=== PATIENT | female | born 1960 | race Caucasian/White ===

== ENCOUNTER 2017-12-06 09:47 | Outpatient (REF) | payer BC, SELFPAY ==
--- NOTE | 2017-12-06 09:00 | PAPFT_PTH ---
PATIENT: Sandi Musa LOC: [facility] U#:[id number] AGE/SX: 57/F ROOM: RE12/06/[address]: Mandi Parker MD : 1960 BED: DIS: 12/06/2017 SPEC #: [id number] RECD: 12/06/17 18:17 STATUS: JIMMIE REElliot #: [id number] ALESHA: 12/06/17 09:[address]: Mandi Parekr DEPT: [facility] Cytology RECD BY: Roma Ruiz ENTERED: 12/06/17 18:18 SP TYPE: PAPFT OTHR DR: Kajal Gaspar Tissues: 1 - CX/ENDOCX FOR PAP SMEARS Procedures: PAP THIN PREP/[facility] Screening Comments: [id number] (UNSATISFACTORY FOR EVALUATION)
== END 2017-12-06 10:07 ==
LOC: LBN 09:47
PROVIDERS: PCP Family Medicine; Visit Provider Obstetrics & Gynecology
DX: Z12.4 Encounter for screening for malignant neoplasm of cervix (principal); Z11.51 Encounter for screening for human papillomavirus (HPV)
CPT/HCPCS: 88142; 87624

== ENCOUNTER 2018-01-18 11:59 | Outpatient (REF) | payer BC, SELFPAY ==
--- NOTE | 2018-01-18 11:00 | PAPFT_PTH ---
PATIENT: Sandi Musa LOC: [facility] U#:[id number] AGE/SX: 57/F ROOM: RE01/18/[address]: Kaylin Chau NP : 1960 BED: DIS: 01/18/2018 SPEC #: [id number] RECD: 01/18/18 18:07 STATUS: JIMMIE REElliot #: [id number] ALESHA: 01/18/18 11:[address]: Kaylni Chau NP DEPT: [facility] Cytology RECD BY: Roma Ruiz ENTERED: 01/18/18 18:07 SP TYPE: PAPFT OTHR DR: Kajal Gaspar Tissues: 1 - CX/ENDOCX FOR PAP SMEARS Procedures: PAP THIN PREP/[facility] Screening HPV DNA PROBE Comments: [id number]
== END 2018-01-18 12:19 ==
LOC: LBN 11:59
PROVIDERS: PCP Family Medicine; Visit Provider Nurse Practitioner Women's Health
DX: Z12.4 Encounter for screening for malignant neoplasm of cervix (principal); Z11.51 Encounter for screening for human papillomavirus (HPV)
CPT/HCPCS: 88142; 87624

== ENCOUNTER 2018-02-15 11:59 | Outpatient (REF) | payer BC, SELFPAY ==
--- NOTE | 2018-02-15 10:55 | CER_PTH ---
PATIENT: Sandi Musa LOC: [facility] U#:[id number] AGE/SX: 57/F ROOM: RE02/15/[address]: Mandi Parker MD : 1960 BED: DIS: 02/15/2018 SPEC #: [id number] RECD: 02/15/18 12:47 STATUS: JIMMIE REQ #: [id number] ALESHA: 02/15/18 10:[address]: Mandi Parker DEPT: Surgical Specimen RECD BY: Roma Ruiz ENTERED: 02/15/18 12:49 SP TYPE: CER OTHR DR: Kajal Gaspar Tissues: 1 - CERVICAL BIOPSY 2 - CERVICAL BIOPSY 3 - CERVICAL BIOPSY 4 - ENDOCERVICAL BX/CURRETTE Procedures: GROSS AND MICRO LEVEL 4 Comments: [id number]
== END 2018-02-15 12:19 ==
LOC: LBN 11:59
PROVIDERS: PCP Family Medicine; Visit Provider Obstetrics & Gynecology
DX: R87.610 Atypical squamous cells of undetermined significance on cytologic smear of cervix (ASC-US) (principal); B97.7 Papillomavirus as the cause of diseases classified elsewhere; N87.0 Mild cervical dysplasia
CPT/HCPCS: 88305

== ENCOUNTER 2019-04-08 12:33 | Outpatient (REF) | payer BC, SELFPAY ==
--- NOTE | 2019-04-08 11:30 | PAPFT_PTH ---
PATIENT: Sandi Musa LOC: [facility] U#:[id number] AGE/SX: 58/F ROOM: RE04/08/[address]: JENI Frey : 1960 BED: DIS: 04/08/2019 SPEC #: [id number] RECD: 04/08/19 12:58 STATUS: JIMMIE REQ #: [id number] ALESHA: 04/08/19 11:[address]: Hansa Bhat DEPT: [facility] Cytology RECD BY: Roma Ruiz ENTERED: 04/08/19 12:58 SP TYPE: PAPFT OTHR DR: Kajal Gaspar Tissues: 1 - CX/ENDOCX FOR PAP SMEARS Procedures: PAP THIN PREP/[facility] Screening HPV DNA PROBE Comments: [id number]
== END 2019-04-08 12:53 ==
LOC: LBN 12:33
PROVIDERS: PCP Family Medicine; Visit Provider Nurse Practitioner Family
DX: Z12.4 Encounter for screening for malignant neoplasm of cervix (principal); Z11.51 Encounter for screening for human papillomavirus (HPV)
CPT/HCPCS: 88142; 87624

== ENCOUNTER 2019-06-23 12:01 | Outpatient (REF) | payer BC, SELFPAY ==
--- NOTE | 2019-06-23 10:20 | ENDO_PTH ---
PATIENT: Sandi Musa LOC: [facility] U#:[id number] AGE/SX: 59/F ROOM: RE06/23/[address]: Gui Kearney MD : 1960 BED: DIS: 06/23/2019 SPEC #: [id number] RECD: 06/23/19 12:23 STATUS: JIMMIE REQ #: [id number] ALESHA: 06/23/19 10:[address]: Gui Kearney DEPT: Surgical Specimen RECD BY: Roma Ruiz ENTERED: 06/23/19 12:23 SP TYPE: Endo OTHR DR: Anne Marie Leon Tissues: 1 - ENDOCERVICAL BX/CURRETTE Procedures: GROSS AND MICRO LEVEL 4 Comments: [id number]
== END 2019-06-23 12:21 ==
LOC: LBN 12:01
PROVIDERS: PCP Internal Medicine; Visit Provider Obstetrics & Gynecology
DX: N88.8 Other specified noninflammatory disorders of cervix uteri (principal); Z87.410 Personal history of cervical dysplasia; R87.810 Cervical high risk human papillomavirus (HPV) DNA test positive
CPT/HCPCS: 88305

== ENCOUNTER 2020-04-23 15:14 | Outpatient (REF) | payer BC, SELFPAY ==
--- NOTE | 2020-04-23 14:15 | PAPFT_PTH ---
PATIENT: Sandi Musa LOC: [facility] U#:[id number] AGE/SX: 60/F ROOM: RE04/23/[address]: Parul Felipe DO : 1960 BED: DIS: 04/23/2020 SPEC #: [id number] RECD: 04/23/20 18:34 STATUS: JIMMIE REQ #: [id number] ALESHA: 04/23/20 14:[address]: Parul Felipe [facility]PT: [facility] Cytology RECD BY: Roma Ruiz ENTERED: 04/23/20 18:35 SP TYPE: PAPFT OTHR DR: Anne Marie Leon Tissues: 1 - CX/ENDOCX FOR PAP SMEARS Procedures: PAP THIN PREP/[facility] Screening HPV DNA PROBE Comments: [id number]
== END 2020-04-23 15:15 | disposition home or self-care (01) ==
LOC: LBN 15:14
PROVIDERS: PCP Internal Medicine; Visit Provider Obstetrics & Gynecology
DX: Z12.4 Encounter for screening for malignant neoplasm of cervix (principal); Z11.51 Encounter for screening for human papillomavirus (HPV); R87.810 Cervical high risk human papillomavirus (HPV) DNA test positive
CPT/HCPCS: 88142; 87624

== ENCOUNTER 2020-06-24 11:41 | Outpatient (REF) | payer BC, SELFPAY ==
--- NOTE | 2020-06-24 10:15 | ENDO_PTH ---
PATIENT: Sandi Musa LOC: [facility] U#:[id number] AGE/SX: 60/F ROOM: RE06/24/[address]: Parul Felipe DO : 1960 BED: DIS: 06/24/2020 SPEC #: [id number] RECD: 06/24/20 12:07 STATUS: JIMMIE RE #: [id number] ALESHA: 06/24/20 10:[address]: Parul Felipe DEPT: Surgical Specimen RECD BY: Roma Ruiz ENTERED: 06/24/20 12:08 SP TYPE: Endo OTHR DR: Anne Marie Leon Tissues: 1 - ENDOCERVICAL BX/CURRETTE 2 - CERVICAL BIOPSY Procedures: GROSS AND MICRO LEVEL 4 IMMUNOPEROXIDASE STAIN P16 IPEX Comments: [id number]
== END 2020-06-24 11:42 | disposition home or self-care (01) ==
LOC: LBN 11:41
PROVIDERS: PCP Internal Medicine; Visit Provider Obstetrics & Gynecology
DX: R87.810 Cervical high risk human papillomavirus (HPV) DNA test positive (principal); N88.8 Other specified noninflammatory disorders of cervix uteri
CPT/HCPCS: 88305; 88342; 88361

== ENCOUNTER 2021-08-18 11:33 | Outpatient (REF) | payer BC, SELFPAY ==
--- NOTE | 2021-08-18 10:00 | PAPFT_PTH ---
PATIENT: Sandi Musa LOC: [facility] U#:[id number] AGE/SX: 61/F ROOM: RE08/18/[address]: JENI Frey : 1960 BED: DIS: 08/18/2021 SPEC #: [id number] RECD: 08/18/21 12:53 STATUS: AUREAChris REQ #: [id number] ALESHA: 08/18/21 10:[address]: Hansa Bhat DEPT: [facility] Cytology RECD BY: Roma Ruiz ENTERED: 08/18/21 12:54 SP TYPE: PAPFT OTHR DR: Anne Marie Leon Tissues: 1 - CX/ENDOCX FOR PAP SMEARS Procedures: PAP THIN PREP/[facility] Screening HPV DNA PROBE Comments: [id number]
== END 2021-08-18 11:34 | disposition home or self-care (01) ==
LOC: LBN 11:33
PROVIDERS: PCP Internal Medicine; Visit Provider Nurse Practitioner Family
DX: Z12.4 Encounter for screening for malignant neoplasm of cervix (principal); Z11.51 Encounter for screening for human papillomavirus (HPV); R87.810 Cervical high risk human papillomavirus (HPV) DNA test positive; Z87.410 Personal history of cervical dysplasia
CPT/HCPCS: 88142; 87624

== ENCOUNTER 2021-09-30 12:01 | Outpatient (REF) | payer BC, SELFPAY ==
--- NOTE | 2021-09-30 09:45 | ENDO_PTH ---
PATIENT: Sandi Musa LOC: [facility] U#:[id number] AGE/SX: 61/F ROOM: RE09/30/[address]: Parul Felipe DO : 1960 BED: DIS: 09/30/2021 SPEC #: [id number] RECD: 09/30/21 12:46 STATUS: JIMMIE REQ #: [id number] ALESHA: 09/30/21 09:[address]: Parul Felipe DEPT: Surgical Specimen RECD BY: Roma Ruiz ENTERED: 09/30/21 12:47 SP TYPE: Endo OTHR DR: Anne Marie Leon Tissues: 1 - ENDOCERVICAL BX/CURRETTE Procedures: GROSS AND MICRO LEVEL 4 Comments: [id number]
== END 2021-09-30 12:02 | disposition home or self-care (01) ==
LOC: LBN 12:01
PROVIDERS: PCP Internal Medicine; Visit Provider Obstetrics & Gynecology
DX: R87.810 Cervical high risk human papillomavirus (HPV) DNA test positive (principal); D84.89 Other immunodeficiencies
CPT/HCPCS: 88305

== ENCOUNTER 2022-10-10 12:24 | Outpatient (REF) | payer BC, SELFPAY ==
--- NOTE | 2022-10-10 11:30 | PAPFT_PTH ---
PATIENT: Sandi Musa LOC: [facility] U#:[id number] AGE/SX: 62/F ROOM: RE10/10/[address]: Parul Felipe DO : 1960 BED: DIS: 10/10/2022 SPEC #: [id number] RECD: 10/10/22 13:26 STATUS: JIMMIE REElliot #: [id number] ALESHA: 10/10/22 11:[address]: Parul Felipe DEPT: [facility] Cytology RECD BY: Roma Ruiz ENTERED: 10/10/22 13:26 SP TYPE: PAPFT OTHR DR: Anne Marie Leon Tissues: 1 - CX/ENDOCX FOR PAP SMEARS Procedures: PAP THIN PREP/[facility] Screening HPV DNA PROBE Comments: [id number]
== END 2022-10-10 12:25 | disposition home or self-care (01) ==
LOC: LBN 12:24
PROVIDERS: PCP Internal Medicine; Visit Provider Obstetrics & Gynecology
DX: Z12.4 Encounter for screening for malignant neoplasm of cervix (principal); Z11.51 Encounter for screening for human papillomavirus (HPV)
CPT/HCPCS: 88142; 87624